=== PATIENT | male | born 1960 | race Caucasian/White ===

== ENCOUNTER 2017-05-12 11:56 | Emergency (ER) | payer SELFPAY ==
[~2017-05-12] VITALS: Ht 193 cm; Wt 145.0 kg
[2017-05-12 11:58] VITALS: BP 179/104; PULSE 62; RESP 24; TEMP 97.9; O2SAT 98
[2017-05-12 12:13] VITALS: BP 166/98; PULSE 65; RESP 18; O2SAT 97
[2017-05-12] MEDS ORDERED: LOSA50TA PO (12:20)
[2017-05-12] MEDS ORDERED: EXCETAB30 (12:20)
--- NOTE | 2017-05-12 12:28 | PD ---
HPI Chief Complaint: Hypertension Time Seen by Provider: 12:22 Travel History International Travel<30 days: No Contact w/Intl Traveler<30days: No Traveled to known affect area: No History of Present Illness HPI Patient is a 56-year-old male presenting to emergency for evaluation of elevated blood pressure readings. He also reports a migraine for the last 3 days that has coincided with the high blood pressure readings he's been having at home. He states that the headache starts in the back of his head and wraps around. He does have a history of migraines, he was on Topamax prior but lost insurance benefits. He reports the headache pain as a 9 out of 10 and is associated with nausea, dizziness and photophobia. Patient took Tylenol last night with no relief of symptoms, he normally takes Excedrin which he has also trialed with no relief. He then stated that he had some mild chest pressure with radiation to left arm and shortness of breath this morning. Patient has a history of hypertension, currently on losartan 50 mg twice daily. He has no primary care provider as she just moved here from [place]. Patient denies a significant family history of cardiac disease. [facility] Past Medical History Asthma: Yes Diabetes: No Headaches: Yes Hypertension: Yes Migraines: Yes Past Surgical History Tonsillectomy: Yes (ADENOIDECTOMY WELL) Other Surgery: Yes (ankle and cheek) Social History Alcohol Use: No Tobacco Use: No Substance Use: No Allergies-Medications (Allergen,Severity, Reaction): Coded Allergies: No Known Allergies (Unverified , 05/12/17) Reported Meds & Prescriptions Reported Meds & Active Scripts Active Reported Excedrin Migraine Caplet (Aspirin/Acetaminophen/Caffeine) 1 Each Tablet Losartan (Losartan Potassium) 50 Mg Tab 50 Mg PO BID Review of Systems Except as stated in HPI: all other systems reviewed are Neg Eyes: Positive: Photophobia HENT: Positive: Headaches, No: Neck Pain Cardiovascular: Positive: Chest Pain or Discomfort Respiratory: Positive: Shortness of Breath Gastrointestinal: Positive: Nausea, No: Vomiting, Diarrhea, Abdominal Pain Genitourinary: No: Dysuria Musculoskeletal: No: Myalgias Neurologic: Positive: Dizziness, No: Focal Abnormalities Physical Exam Narrative GENERAL: Obese, well-developed, alert male. Appears uncomfortable, in no acute distress. SKIN: Warm and dry. HEAD: Atraumatic. Normocephalic. EYES: Pupils equal and round. No scleral icterus. No injection or drainage. ENT: No nasal bleeding or discharge. Mucous membranes pink and moist. NECK: Trachea midline. No JVD. CARDIOVASCULAR: Regular rate and rhythm. RESPIRATORY: No accessory muscle use. Clear to auscultation. Breath sounds equal bilaterally. GASTROINTESTINAL: Abdomen obese, soft, non-tender, nondistended. Hepatic and splenic margins not palpable. Positive bowel sounds. MUSCULOSKELETAL: Extremities without clubbing, cyanosis, or edema. No obvious deformities. NEUROLOGICAL: Awake and alert. No obvious cranial nerve deficits. Motor grossly within normal limits. Five out of 5 muscle strength in the arms and legs. Normal speech. PSYCHIATRIC: Appropriate mood and affect; insight and judgment normal. Data Data Last Documented VS Vital Signs Date Time Temp Pulse Resp B/P Pulse Ox O2 Delivery O2 Flow Rate FiO2 05/12/17 12:13 65 18 166/98 97 Room Air 05/12/17 11:58 97.9 Orders Electrocardiogram (05/12/17 12:20) Ckmb (Isoenzyme) Profile (05/12/17 12:20) Complete Blood Count With Diff (05/12/17 12:20) Comprehensive Metabolic Panel (05/12/17 12:20) Magnesium (Mg) (05/12/17 12:20) Prothrombin Time / Inr (Pt) (05/12/17 12:20) Act Partial Throm Time (Ptt) (05/12/17 12:20) Troponin I (05/12/17 12:20) Lipase (05/12/17 12:20) Chest, Single Ap (05/12/17 12:20) Ecg Monitoring (05/12/17 12:20) Bilateral Bp Monitoring (05/12/17 12:20) Iv Access Insert/Monitor (05/12/17 12:20) Oximetry (05/12/17 12:20) Oxygen Administration (05/12/17 12:20) Sodium Chloride 0.9% Flush (Ns Flush) (05/12/17 12:30) Ondansetron Inj (Zofran Inj) (05/12/17 12:30) Diphenhydramine Inj (Benadryl Inj) (05/12/17 12:30) Ketorolac Inj (Toradol Inj) (05/12/17 12:30) CKMB (05/12/17 12:25) CKMB% (05/12/17 12:25) Labs Laboratory Tests Test 05/12/17 12:25 White Blood Count 5.4 TH/MM3 Red Blood Count 4.75 MIL/MM3 Hemoglobin 14.5 GM/DL Hematocrit 42.6 % Mean Corpuscular Volume 89.7 FL Mean Corpuscular Hemoglobin 30.5 PG Mean Corpuscular Hemoglobin 34.0 % Concent Red Cell Distribution Width 13.6 % Platelet Count 247 TH/MM3 Mean Platelet Volume 8.4 FL Neutrophils (%) (Auto) 62.8 % Lymphocytes (%) (Auto) 27.8 % Monocytes (%) (Auto) 6.2 % Eosinophils (%) (Auto) 2.2 % Basophils (%) (Auto) 1.0 % Neutrophils # (Auto) 3.4 TH/MM3 Lymphocytes # (Auto) 1.5 TH/MM3 Monocytes # (Auto) 0.3 TH/MM3 Eosinophils # (Auto) 0.1 TH/MM3 Basophils # (Auto) 0.1 TH/MM3 CBC Comment DIFF FINAL Differential Comment Prothrombin Time 10.3 SEC Prothromb Time International 0.9 RATIO Ratio Activated Partial 27.3 SEC Thromboplast Time Sodium Level 137 MEQ/L Potassium Level 4.2 MEQ/L Chloride Level 103 MEQ/L Carbon Dioxide Level 28.9 MEQ/L Anion Gap 5 MEQ/L Blood Urea Nitrogen 13 MG/DL Creatinine 1.14 MG/DL Estimat Glomerular Filtration 66 ML/MIN Rate Random Glucose 102 MG/DL Calcium Level 8.9 MG/DL Magnesium Level 2.2 MG/DL Total Bilirubin 0.4 MG/DL Aspartate Amino Transf 39 U/L (AST/SGOT) Alanine Aminotransferase 58 U/L (ALT/SGPT) Alkaline Phosphatase 78 U/L Total Creatine Kinase 142 U/L Creatine Kinase MB 1.3 NG/ML Troponin I LESS THAN 0.02 NG/ML Total Protein 8.0 GM/DL Albumin 3.7 GM/DL Lipase 106 U/L MDM Medical Decision Making Medical Screen Exam Complete: Yes Emergency Medical Condition: Yes Interpretation(s) Last Impressions Chest X-Ray 05/12/17 1220 Signed Impressions: Service Date/Time: Friday, May 12, 2017 12:35 - CONCLUSION: Slight cardiomegaly. Radha Martin MD Laboratory Tests Test 05/12/17 12:25 White Blood Count 5.4 TH/MM3 Red Blood Count 4.75 MIL/MM3 Hemoglobin 14.5 GM/DL Hematocrit 42.6 % Mean Corpuscular Volume 89.7 FL Mean Corpuscular Hemoglobin 30.5 PG Mean Corpuscular Hemoglobin 34.0 % Concent Red Cell Distribution Width 13.6 % Platelet Count 247 TH/MM3 Mean Platelet Volume 8.4 FL Neutrophils (%) (Auto) 62.8 % Lymphocytes (%) (Auto) 27.8 % Monocytes (%) (Auto) 6.2 % Eosinophils (%) (Auto) 2.2 % Basophils (%) (Auto) 1.0 % Neutrophils # (Auto) 3.4 TH/MM3 Lymphocytes # (Auto) 1.5 TH/MM3 Monocytes # (Auto) 0.3 TH/MM3 Eosinophils # (Auto) 0.1 TH/MM3 Basophils # (Auto) 0.1 TH/MM3 CBC Comment DIFF FINAL Differential Comment Prothrombin Time 10.3 SEC Prothromb Time International 0.9 RATIO Ratio Activated Partial 27.3 SEC Thromboplast Time Sodium Level 137 MEQ/L Potassium Level 4.2 MEQ/L Chloride Level 103 MEQ/L Carbon Dioxide Level 28.9 MEQ/L Anion Gap 5 MEQ/L Blood Urea Nitrogen 13 MG/DL Creatinine 1.14 MG/DL Estimat Glomerular Filtration 66 ML/MIN Rate Random Glucose 102 MG/DL Calcium Level 8.9 MG/DL Magnesium Level 2.2 MG/DL Total Bilirubin 0.4 MG/DL Aspartate Amino Transf 39 U/L (AST/SGOT) Alanine Aminotransferase 58 U/L (ALT/SGPT) Alkaline Phosphatase 78 U/L Total Creatine Kinase 142 U/L Creatine Kinase MB 1.3 NG/ML Troponin I LESS THAN 0.02 NG/ML Total Protein 8.0 GM/DL Albumin 3.7 GM/DL Lipase 106 U/L Vital Signs Date Time Temp Pulse Resp B/P Pulse Ox O2 Delivery O2 Flow Rate FiO2 05/12/17 12:13 65 18 166/98 97 Room Air 05/12/17 12:13 65 18 97 Room Air 05/12/17 11:58 97.9 62 24 179/104 98 Room Air Differential Diagnosis Migraine versus tension-type headache versus malignant hypertension versus elevated blood pressure readings versus ACS versus metabolic abnormality versus other Narrative Course Patient is a 56-year-old male presenting for evaluation of a migraine and elevated blood pressure readings. Patient's headache today is consistent with headaches he's had in the past. It is not the worst headache of his life. He is neurologically intact. Patient placed on telemetry monitoring, continuous pulse oximetry, IV access established. EKG, chest x-ray, labs ordered and pending. Medications order to attempt to alleviate headache. EKG shows normal sinus rhythm with a rate of 64. CBC is unremarkable Chemistry with no acute findings Lipase is normal Cardiac enzymes negative 1 set EKG shows normal sinus rhythm with a rate of 66 Chest x-ray shows slight cardiomegaly Patient's headache has resolved. Discussed with patient that he would be an appropriate admission for the chest pain center. The risks of leaving against medical advice without further evaluation treatment were discussed with the patient. These risks include cardiac dysfunction, cardiac dysrhythmia, possible heart attack, possible stroke or . The patient indicated understanding of these risks and appeared to have the capacity to make this decision. Patient was given strict return precautions. He verbalized understanding of these instructions. He will be given written information regarding the [facility]. Patient will be started on amlodipine 5 mg daily, he does state that his blood pressure typically runs in the 140 to low 150 range systolic. Patient is stable for discharge. Plan of care discussed with my attending physician who is in agreement. Diagnosis Primary Impression: Migraine Qualified Code: G43.909 - Migraine without status migrainosus, not intractable , unspecified migraine type Additional Impression: Sensation of chest pressure Referrals: [facility] 3 days Patient Instructions: 2 Gram Sodium Diet (GEN), General Instructions, Heart Healthy Diet (ED), Hypertension (DC), Migraine Headache (ED) Additional Instructions: Follow-up with a primary doctor or at the [facility] Take medications as directed Monitor blood pressure a few times a week, record results. Return to emergency department immediately for any new or worsening symptoms Take blood pressure medications at the same time every day Med/Other Pt SpecificInfo: Prescription(s) given Scripts Amlodipine 5 Mg Tab5 Mg PO DAILY #30 TAB Ref 0 Prov:Amy Wilkerson 05/12/17 Disposition: 01 DISCHARGE HOME Condition: Stable Amy Wilkerson May 12, 2017 12:28
[2017-05-12] MEDS ORDERED: SODIUM CHLORIDE 0.9% FLUSH 10 ML FLUSH IVF PRN (12:30)
[2017-05-12] MEDS ORDERED: KETOROLAC TROMETHAMINE 30 MG/ML (IVP) VIAL IV PUSH ONE (12:30)
[2017-05-12] MEDS ORDERED: ONDANSETRON HCL 4 MG/2 ML VIAL IVP ONE (12:30)
[2017-05-12] MEDS ORDERED: diphenhydrAMINE HCL 50 MG/ML VIAL IVP ONE (12:30)
[2017-05-12 12:51] LABS: AUTOMATED NEUTROPHIL # 3.4 TH/MM3 (1.8-7.7); BASOPHIL # 0.1 TH/MM3 (0-0.2); EOSINOPHIL # 0.1 TH/MM3 (0-0.4); EOSINOPHIL % 2.2 % (0.0-4.0); HEMATOCRIT 42.6 % (39.0-51.0); HEMO FLAGS DIFF FINAL; LYMPH % 27.8 % (9.0-44.0); LYMPHOCYTE # 1.5 TH/MM3 (1.0-4.8); MEAN CELL VOLUME 89.7 FL (80.0-100.0); MEAN CORPUSCULAR HEMOGLOBIN 30.5 PG (27.0-34.0); MONO % 6.2 % (0.0-8.0); NEUT % 62.8 % (16.0-70.0); PLATELET COUNT 247 TH/MM3 (150-450); RED BLOOD COUNT 4.75 MIL/MM3 (4.50-5.90); RED CELL DISTRIBUTION WIDTH 13.6 % (11.6-17.2); WHITE BLOOD COUNT 5.4 TH/MM3 (4.0-11.0)
[2017-05-12 13:03] LABS: ANION GAP 5 MEQ/L (5-15); AST (GOT) 39 U/L (15-37); BICARBONATE 28.9 MEQ/L (21.0-32.0); BLOOD UREA NITROGEN 13 MG/DL (7-18); CHLORIDE 103 MEQ/L (98-107); GLOMERULAR FILTRATION RATE 66 ML/MIN (>89); MAGNESIUM 2.2 MG/DL (1.5-2.5); POTASSIUM 4.2 MEQ/L (3.5-5.1); SODIUM (NA) 137 MEQ/L (136-145)
[2017-05-12 13:07] LABS: APTT (PATIENT) 27.3 SEC (24.3-30.1); INTERNATIONAL NORMALIZED RATIO 0.9 RATIO; PROTHROMBIN TIME - PATIENT 10.3 SEC (9.8-11.6)
--- NOTE | 2017-05-12 13:08 | RADRPT ---
EXAM DATE/TIME: 05/12/2017 12:35 [facility] COMPARISON: No previous studies available for comparison. INDICATIONS : Chest pain and shortness of breath. MEDICAL HISTORY : None. SURGICAL HISTORY : None. ENCOUNTER: Initial ACUITY: 1 day PAIN SCORE: 1/10 LOCATION: Bilateral chest FINDINGS: The lungs are clear without infiltrate, nodule, or mass. There is no appreciable pleural effusion fo r technique. Slight cardiomegaly seen. CONCLUSION: Slight cardiomegaly. Radha Martin MD on May 12, 2017 at 13:07 Board Certified Radiologist. This report was verified electronically.
[2017-05-12 13:09] LABS: ALKALINE PHOSPHATASE 78 U/L (45-117); ALT (GPT) 58 U/L (12-78); CREATINE KINASE 142 U/L (39-308); TOTAL BILIRUBIN ADULT 0.4 MG/DL (0.2-1.0)
[2017-05-12 13:21] LABS: CKMB 1.3 NG/ML (0.5-3.6)
[2017-05-12] MEDS ORDERED: AMLO5TAB2 PO (14:12)
[2017-05-12 14:44] VITALS: RESP 20
--- NOTE | 2017-05-13 19:27 | EKG ---
Date Performed: 05/12/2017 Time Performed: 12:32:09 PTAGE: 56 years EKG: Sinus rhythm NORMAL ECG NO PREVIOUS TRACING DOCTOR: Jabari Yoon Interpretating Date/Time 05/13/2017 19:24:26
== END 2017-05-12 14:46 | disposition home or self-care (01) ==
LOC: NEPE 11:56
DX: G43.909 Migraine, unspecified, not intractable, without status migrainosus (principal); R07.89 Other chest pain; I09.89 Other specified rheumatic heart diseases; R42 Dizziness and giddiness; R51 Headache; J45.909 Unspecified asthma, uncomplicated; I10 Essential (primary) hypertension; Z79.899 Other long term (current) drug therapy
CPT/HCPCS: 71010; 80053; 82550; 82552; 83690; 83735; 84484; 85025; 85610; 85730; 93005; 96374; 96375; 99285; J1200; J1885; J2405